=== PATIENT | female | born 1995 | race Caucasian/White ===

== ENCOUNTER 2016-07-31 05:42 | Day surgery (SDC) | payer BC ==
[2016-07-31] MEDS ORDERED: LIDOCAINE 1% 5 ML SDV ONE (05:57)
[2016-07-31] MEDS ORDERED: fentaNYL 250 MCG/5 ML INJ ONE (07:04)
[2016-07-31] MEDS ORDERED: ROCURONIUM 100 MG/10 ML VIAL ONE (07:04)
[2016-07-31] MEDS ORDERED: PROPOFOL 200 MG/20 ML VIAL ONE ×2 (07:04)
[2016-07-31] MEDS ORDERED: LIDO/EPI 1% **Not for Epidural 20 ML MDV ONE (07:10)
[2016-07-31] MEDS ORDERED: METHYLENE BLUE 1% 10 MG/ML VIAL ONE (07:11)
[2016-07-31] MEDS ORDERED: EPINEPHrine 30 MG/30 ML MDV ONE (07:11)
[2016-07-31] MEDS ORDERED: MIDAZOLAM 2 MG/2 ML VIAL ONE (07:15)
[2016-07-31] MEDS ORDERED: DEXAMETHASONE 10 MG/ML VIAL IVP ONE (07:30)
[2016-07-31] MEDS ORDERED: DEXAMETHASONE 4 MG/ML VIAL ONE (08:17)
[2016-07-31] MEDS ORDERED: ONDANSETRON 4 MG/2 ML VIAL ONE ×2 (08:17→10:30)
[2016-07-31] MEDS ORDERED: fentaNYL 100 MCG/2 ML INJ ONE (09:35)
[2016-07-31] MEDS ORDERED: PROMETHAZINE HCL 25 MG/ML VIAL ONE (11:13)
[2016-07-31] MEDS ORDERED: OXYCODONE/APAP 5/325 TAB ONE (11:46)
== END 2016-07-31 12:30 | disposition home or self-care (01) ==
LOC: FSGY 05:42
PROVIDERS: ATTEND Otolaryngology
PROC: 09C Ear, Nose, Sinus, Extirpation (ICD-10-PCS; principal; 2016-07-31 07:15)
PROC: 09C Ear, Nose, Sinus, Extirpation (ICD-10-PCS; principal; 2016-07-31 07:15)
PROC: 09BL7ZZ Excision of Nasal Turbinate, Via Natural or Artificial Opening (ICD-10-PCS; principal; 2016-07-31 07:15)
DX: J01.01 Acute recurrent maxillary sinusitis (principal); E10.9 Type 1 diabetes mellitus without complications; Z88.2 Allergy status to sulfonamides
CPT/HCPCS: J1100; J2250; J2405; J2550; J2704; J3010